=== PATIENT | female | born 1990 | race Caucasian/White ===

== ENCOUNTER 2017-06-23 20:53 | Emergency (ER) | payer OTHER ==
[2017-06-23 20:56] VITALS: BP 192/105; PULSE 122; RESP 18; TEMP 98.8; O2SAT 98
== END 2017-06-23 21:45 | disposition left against medical advice (07) ==
LOC: NED 20:53
DX: T14.8 Other injury of unspecified body region (principal); W54.0XXA Bitten by dog, initial encounter
CPT/HCPCS: 99281